=== PATIENT | male | born 1970 | race Caucasian/White ===

== ENCOUNTER 2022-07-21 08:47 | Emergency (ER) | payer OTHER ==
[2022-07-21 08:53] VITALS: RESP 18; TEMP 98.3; BMI 21.1
[2022-07-21 10:32] VITALS: BP 110/70; PULSE 89
== END 2022-07-21 10:54 | disposition home or self-care (01) ==
LOC: JER 08:47
DX: L03.115 Cellulitis of right lower limb (principal)
CPT/HCPCS: 36415; 86618; 99283-25